=== PATIENT | male | born 1980 | race Caucasian/White ===

== ENCOUNTER 2020-04-09 11:36 | Emergency (ER) | payer SELFPAY ==
[~2020-04-09] VITALS: Ht 182.9 cm; Wt 102.1 kg
[2020-04-09] MEDS ORDERED: ONDANSETRON 2MG/ML, 2ML IVPush ONE (12:00)
[2020-04-09] MEDS ORDERED: SODIUM CHLORIDE FLUSH 10ML SYR IVF ONE (12:00)
[2020-04-09] MEDS ORDERED: KETOROLAC 30 MG/1 ML IVPush ONE (12:00)
[2020-04-09] MEDS ORDERED: ONDANSETRON 2MG/ML, 2ML ONE (12:17)
[2020-04-09] MEDS ORDERED: KETOROLAC 30 MG/1 ML ONE (12:17)
[2020-04-09 12:25] LABS: BASOPHILS % (AUTO) 0 % (0-1); EOSINOPHILS % (AUTO) 1 % (1-7); LYMPHOCYTES % (AUTO) 10 % (22-44); MEAN CORPUSCULAR HEMOGLOBIN 28.8 pg (27.5-34.5); MEAN CORPUSCULAR HGB CONC 33.5 g/dL (33.2-36.2); MONOCYTES % (AUTO) 8 % (2-9); NEUTROPHILS % (AUTO) 81 % (42-75); PLATELET COUNT 273 x10^3/uL (130-400); RED BLOOD COUNT 5.27 x10^6/uL (4.38-5.82)
[2020-04-09 12:26] LABS: MD NO
[2020-04-09 12:35] LABS: ALBUMIN 3.7 g/dL (3.4-5.0); ANION GAP 3 mmol/L (5-15); CALCIUM 8.9 mg/dL (8.5-10.1); CHLORIDE 108 mmol/L (98-107); CREATININE 1.04 mg/dL (0.7-1.3)
[2020-04-09 12:39] LABS: MICROSCOPIC AUTO
[2020-04-09 13:38] VITALS: BP 147/85
[2020-04-09] MEDS ORDERED: CEFTRIAXONE PMX 1GM/50ML 50 ML ONE (14:54)
[2020-04-09] MEDS ORDERED: CEFTRIAXONE PMX 1GM/50ML 50 ML IV ONE (15:00)
[2020-04-09] MEDS ORDERED: CEFTRIAXONE 1,000 MG IM ONE (15:00)
== END 2020-04-09 15:13 | disposition home or self-care (01) ==
LOC: ED 13:29
DX: N30.90 Cystitis, unspecified without hematuria (principal); R10.9 Unspecified abdominal pain; M32.9 Systemic lupus erythematosus, unspecified
CPT/HCPCS: 36415; 74176; 80048; 81001; 82040; 85025; 87077; 87086; 96365; 96366; 96375; 99284; J0696; J1885; J2405; 87186

== ENCOUNTER 2020-10-24 00:37 | Emergency (ER) | payer SELFPAY ==
[~2020-10-24] VITALS: Ht 182.9 cm; Wt 101.2 kg
[2020-10-24 01:56] VITALS: BP 146/84
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
== END 2020-10-24 02:00 | disposition home or self-care (01) ==
LOC: ED 01:59
DX: K02.9 Dental caries, unspecified (principal); K05.00 Acute gingivitis, plaque induced; K08.89 Other specified disorders of teeth and supporting structures
CPT/HCPCS: 99283